=== PATIENT | female | born 1950 | race Caucasian/White ===

== ENCOUNTER 2019-07-03 10:40 | Emergency (ER) | payer MEDICARE, MEDICAID ==
[~2019-07-03] VITALS: Ht 157.4 cm; Wt 81.6 kg
[2019-07-03] MEDS ORDERED: PREDNISONE20 M1 PO (13:25)
[2019-07-03] MEDS ORDERED: ROBAXIN500 M1 PO (13:25)
== END 2019-07-03 13:40 | disposition home or self-care (01) ==
LOC: ED 10:40
DX: M54.31 Sciatica, right side (principal); Z98.51 Tubal ligation status

== ENCOUNTER 2021-08-01 16:04 | Inpatient (IN) | payer MEDICARE ==
[~2021-08-01] VITALS: Ht 157 cm; Wt 88.5 kg
[2021-08-01] VITALS (9 sets, daily range): BP systolic 88–143; BP diastolic 40–66
[~2021-08-01 16:04] MED LIST: PREDNISONE20 M1 PO; ROBAXIN500 M1 PO
[2021-08-01 16:44] LABS: HEMATOCRIT 44.2 % (37.0-47.0); MEAN CORPUSCULAR HGB 28.5 pg (27.0-31.0); MEAN CORPUSCULAR HGB CONC 31.7 g/dl (33.0-37.0); MEAN PLATELET VOLUME 13.5 fl (9.6-12.3); PLATELET COUNT AUTOMATED 125 10*3/uL (130-400); RED BLOOD COUNT 4.91 10*6/uL (4.10-5.10); RED CELL DISTRI WIDTH 15.6 % (0-14.5); WHITE BLOOD COUNT 18.2 10*3/uL (4.8-10.8)
[2021-08-01 16:44] LABS: ABG BASE EXCESS -0.6 mmol/L (-2.0-2.0); ARTERIAL BLOOD GAS PH 7.48 (7.35-7.45); ARTERIAL BLOOD GAS PO2 50.8 (80-90)
[2021-08-01 16:56] LABS: ALBUMIN 2.5 gm/dl (3.1-4.5); CREATININE 2.29 mg/dL (0.55-1.02); POTASSIUM 4.1 mmol/L (3.5-5.1); TOTAL PROTEIN 7.9 gm/dL (6.4-8.2)
[2021-08-01 17:08] LABS: ATYPICAL LYMPHS 1 % (0-0); PLATELET SUFFICIENCY NORMAL (NORMAL); TOTAL CELLS COUNTED 100 #CELLS
[2021-08-02] VITALS: BP 144/53
[2021-08-02 05:46] LABS: BILIRUBIN 2+ (Negative); BLOOD Negative (Negative); CLARITY Cloudy (Clear); COLOR Orange (Yellow); GLUCOSE Negative (Negative); KETONE Trace (Negative); LEUKO ESTERASE 2+ (Negative); NITRITE Positive (Negative)
[2021-08-02 06:09] LABS: BACTERIA 3+; RBC 16-20 rbc/hpf (0-2); WBC TNTC wbc/hpf (0-5)
[2021-08-02 06:12] LABS: HEMATOCRIT 36.2 % (37.0-47.0); MEAN CORPUSCULAR HGB 28.6 pg (27.0-31.0); MEAN CORPUSCULAR HGB CONC 31.5 g/dl (33.0-37.0); MEAN PLATELET VOLUME 14.1 fl (9.6-12.3); PLATELET COUNT AUTOMATED 98 10*3/uL (130-400); RED BLOOD COUNT 3.98 10*6/uL (4.10-5.10); RED CELL DISTRI WIDTH 15.7 % (0-14.5); WHITE BLOOD COUNT 12.7 10*3/uL (4.8-10.8)
[2021-08-02 06:20] LABS: CREATININE 2.95 mg/dL (0.55-1.02); FREE T4 1.09 ng/dl (0.76-1.46); POTASSIUM 4.4 mmol/L (3.5-5.1); TOTAL PROTEIN 6.6 gm/dL (6.4-8.2)
[2021-08-02 06:23] LABS: URINE CHLORIDE, RANDOM < 10 mmol/L
[2021-08-02 06:25] LABS: THYROID STIM HORMONE (HS) 4.91 uIU/ml (0.358-4.75)
[2021-08-02 06:54] LABS: VITAMIN D, 25-HYDROXY 13.3 ng/mL (30-100)
[2021-08-02 06:55] LABS: INTERNATIONAL NORM RATIO 1.3 (2.0-3.5)
[2021-08-02 08:00] VITALS: BP 129/57
[2021-08-02 08:13] LABS: PLATELET SUFFICIENCY LOW (NORMAL); TOTAL CELLS COUNTED 100 #CELLS
[2021-08-02 12:00] VITALS: BP 177/56
[2021-08-02 16:00] VITALS: BP 159/56
[2021-08-02 20:00] VITALS: BP 150/61
[2021-08-03] VITALS: BP 182/67
[2021-08-03 06:56] LABS: HEMATOCRIT 35.9 % (37.0-47.0); MEAN CELL VOLUME 89.8 fl (81.0-99.0); MEAN CORPUSCULAR HGB 28.5 pg (27.0-31.0); MEAN CORPUSCULAR HGB CONC 31.8 g/dl (33.0-37.0); MEAN PLATELET VOLUME 13.6 fl (9.6-12.3); PLATELET COUNT AUTOMATED 127 10*3/uL (130-400); RED CELL DISTRI WIDTH 15.7 % (0-14.5); WHITE BLOOD COUNT 12.9 10*3/uL (4.8-10.8)
[2021-08-03 07:23] LABS: POTASSIUM 4.5 mmol/L (3.5-5.1)
[2021-08-03 07:28] LABS: CREATININE 2.64 mg/dL (0.55-1.02); TOTAL PROTEIN 6.9 gm/dL (6.4-8.2)
[2021-08-03 08:00] VITALS: BP 158/67
[2021-08-03 08:20] LABS: PLATELET SUFFICIENCY LOW (NORMAL); TOTAL CELLS COUNTED 100 #CELLS
[2021-08-03 12:00] VITALS: BP 175/59
[2021-08-03 16:00] VITALS: BP 185/70
[2021-08-03 20:00] VITALS: BP 188/70
[2021-08-04] VITALS: BP 172/72
[2021-08-04 01:17] VITALS: BP 162/42
[2021-08-04 07:05] LABS: BASO % 0.3 % (0.0-1.0); LYMPH # 0.6 10*3/uL (1.3-4.4); LYMPH % 7.4 % (27.0-41.0); MEAN CELL VOLUME 89.2 fl (81.0-99.0); MEAN CORPUSCULAR HGB 28.6 pg (27.0-31.0); MEAN CORPUSCULAR HGB CONC 32.1 g/dl (33.0-37.0); MEAN PLATELET VOLUME 13.7 fl (9.6-12.3); MONO # 0.3 10*3/uL (0.1-1.0); MONO % 4.2 % (3.0-9.0); NEUT # 6.5 10*3/uL (2.3-7.9); NEUT % 86.6 % (47.0-73.0); PLATELET COUNT AUTOMATED 105 10*3/uL (130-400); RED CELL DISTRI WIDTH 15.3 % (0-14.5); WHITE BLOOD COUNT 7.4 10*3/uL (4.8-10.8)
[2021-08-04 07:21] LABS: CREATININE 1.79 mg/dL (0.55-1.02)
[2021-08-04 08:00] VITALS: BP 174/57
[2021-08-04 12:00] VITALS: BP 175/48
[2021-08-04 16:53] VITALS: BP 160/60
[2021-08-04 20:00] VITALS: BP 172/86; BP 211/68
[2021-08-05] VITALS (8 sets, daily range): BP systolic 157–216; BP diastolic 47–93
[2021-08-05 07:28] LABS: CREATININE 1.47 mg/dL (0.55-1.02); POTASSIUM 3.9 mmol/L (3.5-5.1)
[2021-08-06] VITALS: BP 111/70
[2021-08-06 08:00] VITALS: BP 185/80
[2021-08-06 08:02] LABS: CREATININE 1.4 mg/dL (0.55-1.02); POTASSIUM 3.9 mmol/L (3.5-5.1)
[2021-08-06 12:00] VITALS: BP 154/57
[2021-08-06] MEDS ORDERED: AMOXICILLIN500 M3 PO (15:23)
[2021-08-06] MEDS ORDERED: CEPHALEXIN500 M1 PO (15:23)
[2021-08-06] MEDS ORDERED: CARVEDILOL6.25 MG PO (15:26)
[2021-08-06] MEDS ORDERED: HYDRALAZINE10 MG PO (15:26)
[2021-08-06] MEDS ORDERED: VITAMIN D350 MC2 PO (15:26)
[2021-08-06 16:00] VITALS: BP 148/67
[2021-08-11 06:07] LABS: TB1 Ag VALUE 0.06 IU/mL (.)
== END 2021-08-06 18:00 | disposition home or self-care (01) | DRG 871 ==
LOC: ED 16:04 → EDHOLD 17:28 → 4E 17:28
PROVIDERS: Internal Medicine; Student in an Organized Health Care Education/Training Program; ADMIT Family Medicine; ATTEND Family Medicine
PROC: 5A09357 Assistance with Respiratory Ventilation, Less than 24 Consecutive Hours, Continuous Positive Airway Pressure (ICD-10-PCS; 2021-08-01)
PROC: 5A0935A Assistance with Respiratory Ventilation, Less than 24 Consecutive Hours, High Flow/Velocity Cannula (ICD-10-PCS; principal; 2021-08-02)
PROC: 5A09357 Assistance with Respiratory Ventilation, Less than 24 Consecutive Hours, Continuous Positive Airway Pressure (ICD-10-PCS; 2021-08-02)
PROC: 5A0935A Assistance with Respiratory Ventilation, Less than 24 Consecutive Hours, High Flow/Velocity Cannula (ICD-10-PCS; 2021-08-03)
DX: A40.3 Sepsis due to Streptococcus pneumoniae (principal); J96.01 Acute respiratory failure with hypoxia; N17.0 Acute kidney failure with tubular necrosis; E43 Unspecified severe protein-calorie malnutrition; J15.6 Pneumonia due to other Gram-negative bacteria; R65.20 Severe sepsis without septic shock; E87.2 Acidosis; F17.210 Nicotine dependence, cigarettes, uncomplicated; K20.90 Esophagitis, unspecified without bleeding; K74.60 Unspecified cirrhosis of liver; B96.20 Unspecified Escherichia coli [E. coli] as the cause of diseases classified elsewhere; I10 Essential (primary) hypertension; E66.9 Obesity, unspecified; D69.6 Thrombocytopenia, unspecified; M54.30 Sciatica, unspecified side; Z20.822 Contact with and (suspected) exposure to COVID-19; Z68.35 Body mass index [BMI] 35.0-35.9, adult; Z71.6 Tobacco abuse counseling; Z82.49 Family history of ischemic heart disease and other diseases of the circulatory system